=== PATIENT | male | born 1985 | race Two or more races ===

== ENCOUNTER 2020-11-06 09:54 | Emergency (ER) | payer OTHER ==
[~2020-11-06] VITALS: Ht 182.9 cm; Wt 95.3 kg
== END 2020-11-06 11:59 | disposition home or self-care (01) ==
LOC: ER 09:54
DX: R42 Dizziness and giddiness (principal); F06.4 Anxiety disorder due to known physiological condition

== ENCOUNTER 2021-01-15 23:19 | Emergency (ER) | payer OTHER ==
[~2021-01-15] VITALS: Ht 182.9 cm; Wt 97.5 kg
[2021-01-15] MEDS ORDERED: IBRANCE75 MG PO (23:31)
[2021-01-16] MEDS ORDERED: CEPHALEXIN500 M1 PO (04:03)
== END 2021-01-16 04:17 | disposition home or self-care (01) ==
LOC: ER 23:19
DX: R42 Dizziness and giddiness (principal); K29.70 Gastritis, unspecified, without bleeding; B34.9 Viral infection, unspecified; F41.0 Panic disorder [episodic paroxysmal anxiety]